=== PATIENT | male | born 1990 | race Caucasian/White ===

== ENCOUNTER 2020-10-30 21:50 | Emergency (ER) | payer OTHER ==
[2020-10-30 21:58] VITALS: BP 156/98; TEMP 98; BMI 27.2
[2020-10-30] MEDS ORDERED: morphine CARPU-JECT 4 MG/1 ML DISP.SYRIN IVPUSH ONE (22:49)
[2020-10-30] MEDS ORDERED: SODIUM CHLORIDE 0.9% 500 ML INFUS.BAG IV ONE (22:49)
[2020-10-30] MEDS ORDERED: morphine SULFATE 4 MG/ML VIAL ONE (22:58)
[2020-10-30 23:21] LABS: BASO % 0.4 % (0-2.0); EOS % 0.5 % (0-4.5); HEMATOCRIT 40.1 % (35.4-49); HEMOGLOBIN 14.1 GM/dL (11.7-16.9); LYMPH % 11.3 % (8-40); MEAN CELL VOLUME 85.8 fl (80-96); MEAN PLT VOLUME 7.4 fl (7.5-11.1); MONO % 8.6 % (3.8-10.2); NEUT % 79.2 % (42.8-82.8); PLATELET COUNT 351 10^3/uL (134-434); RBC 4.68 M/mm3 (4.00-5.60); RDW 15.5 % (11.9-15.9); RETICULOCYTES 4.55 % (0.5-1.5)
[2020-10-30] MEDS ORDERED: KETAMINE HCL 500 MG/10 ML VIAL IV ONE (23:34)
[2020-10-30 23:37] LABS: CHLORIDE 107 mmol/L (98-107); SODIUM 141 mmol/L (136-145)
[2020-10-30 23:41] LABS: CALCIUM 9.3 mg/dL (8.5-10.1)
[2020-10-30 23:42] LABS: ANION GAP 8 MMOL/L (8-16); CO2 26 mmol/L (21-32); GLUCOSE,RANDOM 96 mg/dL (74-106)
[2020-10-30 23:44] LABS: SGPT/ALT 26 U/L (13-61)
[2020-10-30 23:45] LABS: CREATININE 0.8 mg/dL (0.55-1.3); SGOT/AST 26 U/L (15-37)
[2020-10-30 23:46] LABS: BILIRUBIN,TOTAL 1.3 mg/dL (0.2-1); TOT PROT 7.3 g/dl (6.4-8.2)
[2020-10-30 23:47] LABS: ALK PHOS 84 U/L (45-117)
[2020-10-30] MEDS ORDERED: KETAMINE HCL 200 MG/20 ML VIAL ONE (23:47)
[2020-10-30 23:54] LABS: ANISOCYTOSIS 1+; MACROCYTOSIS 0; PLATELET ESTIMATE NORMAL; TARGET CELLS 2+
[2020-10-31] MEDS ORDERED: AZITHROMYCIN 250 MG TABLET PO ONE
[2020-10-31] MEDS ORDERED: CEFTRIAXONE 1 GM in DEXTROSE 5%-WATER - 100 ML IVPB ONE
[2020-10-31] MEDS ORDERED: CEFTRIAXONE 1 GM/50 ML BAG ONE (00:52)
[2020-10-31 01:43] VITALS: PULSE 100
[2020-10-31] MEDS ORDERED: AZITHROMYCIN 250 MG TABLET ONE (01:45)
[2020-10-31] MEDS ORDERED: morphine CARPU-JECT 4 MG/1 ML DISP.SYRIN IVPUSH ONE (01:51)
[2020-10-31] MEDS ORDERED: morphine SULFATE 4 MG/ML VIAL ONE (02:31)
[2020-10-31] MEDS ORDERED: KETOROLAC TROMETHAMINE 30 MG/1 ML VIAL IVPUSH ONE (02:37)
[2020-10-31] MEDS ORDERED: KETOROLAC TROMETHAMINE 30 MG/1 ML VIAL ONE (03:05)
== END 2020-10-31 06:50 | disposition left against medical advice (07) ==
LOC: JER 21:50
PROC: 3E03329 Introduction of Other Anti-infective into Peripheral Vein, Percutaneous Approach (ICD-10-PCS; principal; 2020-10-30)
PROC: 3E033GC Introduction of Other Therapeutic Substance into Peripheral Vein, Percutaneous Approach (ICD-10-PCS; 2020-10-30)
PROC: 3E0333Z Introduction of Anti-inflammatory into Peripheral Vein, Percutaneous Approach (ICD-10-PCS; 2020-10-30)
PROC: 3E033NZ Introduction of Analgesics, Hypnotics, Sedatives into Peripheral Vein, Percutaneous Approach (ICD-10-PCS; 2020-10-30)
PROC: 3E033NZ Introduction of Analgesics, Hypnotics, Sedatives into Peripheral Vein, Percutaneous Approach (ICD-10-PCS; 2020-10-30)
DX: D57.219 Sickle-cell/Hb-C disease with crisis, unspecified (principal)
CPT/HCPCS: 36415; 71045-TC-FY; 80053; 82550; 84484; 85025; 85045; 93005; 93010; 99285-25; C9803; U0003; U0005

== ENCOUNTER 2021-01-21 08:51 | Emergency (ER) | payer OTHER ==
[2021-01-21 09:04] VITALS: TEMP 97.9; BMI 27.2
[2021-01-21] MEDS ORDERED: morphine CARPU-JECT 4 MG/1 ML DISP.SYRIN IVPUSH ONE (09:33)
[2021-01-21] MEDS ORDERED: HYDROmorphone HCL CARPU-JECT 2 MG/1 ML DISP.SYRIN IVPUSH ONE (09:36)
[2021-01-21 09:42] LABS: BASO % 0.5 % (0-2.0); EOS % 1.9 % (0-4.5); HEMATOCRIT 40.9 % (35.4-49); HEMOGLOBIN 14.6 GM/dL (11.7-16.9); LYMPH % 19.7 % (8-40); MCH 30.5 pg (25.7-33.7); MCHC 35.7 g/dl (32.0-35.9); MEAN CELL VOLUME 85.6 fl (80-96); MEAN PLT VOLUME 7.8 fl (7.5-11.1); MONO % 7.6 % (3.8-10.2); NEUT % 70.3 % (42.8-82.8); PLATELET COUNT 331 10^3/uL (134-434); RBC 4.78 M/mm3 (4.00-5.60); RDW 15.7 % (11.9-15.9); RETICULOCYTES 6.33 % (0.5-1.5); WHITE BLOOD COUNT 14.5 K/mm3 (4.0-10.0)
[2021-01-21] MEDS ORDERED: HYDROmorphone HCl 2 MG/ML VIAL ONE (09:43)
[2021-01-21] MEDS ORDERED: LACTATED RINGERS SOLUTION 1000 ML INFUS.BAG IV ONE (09:45)
[2021-01-21 10:04] LABS: ALBUMIN 4.1 g/dl (3.4-5.0); BLOOD UREA NITROGEN 11.3 mg/dL (7-18); CALCIUM 9.2 mg/dL (8.5-10.1)
[2021-01-21 10:07] LABS: BILIRUBIN,DIRECT 0.3 mg/dL (0.0-0.2); CREATININE 0.8 mg/dL (0.55-1.3)
[2021-01-21 10:09] LABS: BILIRUBIN,TOTAL 1.6 mg/dL (0.2-1); TOT PROT 7.3 g/dl (6.4-8.2)
[2021-01-21 11:25] VITALS: BP 129/77; PULSE 74
== END 2021-01-21 11:33 | disposition home or self-care (01) ==
LOC: JER 08:51
PROC: 3E033NZ Introduction of Analgesics, Hypnotics, Sedatives into Peripheral Vein, Percutaneous Approach (ICD-10-PCS; principal; 2021-01-21)
PROC: 3E033GC Introduction of Other Therapeutic Substance into Peripheral Vein, Percutaneous Approach (ICD-10-PCS; 2021-01-21)
DX: D57.00 Hb-SS disease with crisis, unspecified (principal)
CPT/HCPCS: 36415; 80053; 82248; 83010; 83615; 85025; 85045; 99284-25